=== PATIENT | male | born 1945 ===

== ENCOUNTER → 2020-09-17 | Day surgery (SDC) | payer OTHER ==
[~2020-09-17] MED LIST: ALDACTONE25 MG PO; AVAPRO300 MG PO; CARDURA XL4 MG PO; DERMOPLAST FIRS78 GM TOP; LASIX20 MG PO; PERCOCET 5-3251 EACH PO; RECTICARE30 GM TOP; TOPROL XL50 M1 PO; XARELTO20 MG PO; [UNRECOGNIZED DRUG - OTHER] PO
== END | disposition home or self-care (01) ==
LOC: ADM 09-10 09:45 → CIR.AMB 05:15
PROVIDERS: ATTEND Surgery
DX: K60.3 Anal fistula (principal); Z20.822 Contact with and (suspected) exposure to COVID-19